=== PATIENT | female | born 1975 | race Hispanic/Latino ===

== ENCOUNTER 2019-09-18 09:44 | Emergency (ER) | payer SELFPAY ==
--- NOTE | 2019-09-18 11:25 | Emergency Department Report ---
ED Back Pain/Injury HPI - General Chief Complaint: Back Pain/Injury Stated Complaint: WORK INJURY/LOWER BACK Time Seen by Provider: 09/18/19 10:40 Source: patient Limitations: No Limitations - History of Present Illness Initial Comments: Patient is a 43-year-old female who had a recent muscle strain on September 14 and was told by urgent care to follow-up with orthopedic. Patient states on Wednesday she was seen by urgent care provider and was x-rayed. Patient states x-ray was negative for any fractures or abnormalities. Patient presents essentially was not given any medication and is still having the same lower back pain. She denies any acute trauma falls or injury. 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 She denies dysuria, fever, any other symptoms MD Complaint: back pain -: days(s) (4) Similar Symptoms Previously: No Place: work Radiation: none Severity: mild Severity scale (0 -10): 5 Quality: sharp, dull, aching Consistency: intermittent Improves With: movement, walking Worsens With: sitting upright Context: while lifting, turning/twisting Associated Symptoms: denies: confusion, weakness, chest pain, numbness, difficulty walking, incontinence - Related Data Previous Rx's Medication Instructions Recorded Last Taken Type Cyclobenzaprine [Flexeril] 10 mg PO QHS PRN #20 tablet 09/18/19 Unknown Rx Ibuprofen [Motrin 800 MG tab] 800 mg PO Q8HR PRN #30 tablet 09/18/19 Unknown Rx Allergies Allergy/AdvReac Type Severity Reaction Status Date / Time No Known Allergies Allergy Unverified 09/18/19 09:47 ED Review of Systems ROS: Stated complaint: WORK INJURY/LOWER BACK Other details as noted in HPI Comment: All other systems reviewed and negative ED Back Pain Physical Exam - Exam General: Vital signs noted. No distress. Alert and acting appropriately. Back/Abdomen: No Abdominal Tenderness, No Perithoracic Tenderness, No Perilumbar Tenderness, No Sacroiliac Tenderness, No Flank Tenderness, No Straight Leg Raise Pain Neuro: Yes Normal Sensation, Yes Normal DTR's, Yes Normal Gait, No Motor Weakness ED Course Vital Signs 09/18/19 09:48 Temperature 98.1 F Pulse Rate 84 Respiratory 16 Rate Blood Pressure 117/69 O2 Sat by Pulse 100 Oximetry ED Medical Decision Making - Medical Decision Making 43-year-old female presents to ED with myalgia the lower back ED course: Patient received orthopedic referral in the ED. Also took discussed the patient to keep her appointment with her current follow-up orthopedics. Vital signs are normal patient is in no acute distress Discussed with patient follow-up with primary care physician. I reviewed a copy of spinal x-rays the patient had with her.It was done on September 14. X-rays were negative. Discussed the patient and take medications as prescribed. Patient has no neurological deficit. Patient is alert and oriented 3 and understands all instructions given. Discussed drowsiness effect of Flexeril makes her drowsy and not to operate machinery while taking flexeril Critical care attestation.: If time is entered above; I have spent that time in minutes in the direct care of this critically ill patient, excluding procedure time. ED Disposition Clinical Impression: Strain of muscle, fascia and tendon of lower back, initial encounter Disposition: DC-01 TO HOME OR SELFCARE Is pt being admited?: No Does the pt Need Aspirin: No Condition: Stable Instructions: Muscle Strain (ED) Additional Instructions: Make sure to follow up with the primary care physician as discussed. Take all your medications as you've been prescribed. If you have any worsening symptoms or develop new symptoms please return to ED immediately.e Referrals: [facility] [Provider Group] - 3-5 Days [facility] [Outside] - 3-5 Days Forms: Work/School Release Form(ED) Time of Disposition: 11:27
[2019-09-18 11:51] VITALS: BP 115/70
== END 2019-09-18 11:46 | disposition home or self-care (01) ==
LOC: ED 09:44
DX: S39.012A Strain of muscle, fascia and tendon of lower back, initial encounter (principal); X58.XXXA Exposure to other specified factors, initial encounter; Y93.89 Activity, other specified; Y92.89 Other specified places as the place of occurrence of the external cause; Y99.8 Other external cause status
CPT/HCPCS: 99282